=== PATIENT | female | born 1945 | race Caucasian/White ===

== ENCOUNTER 2023-05-16 05:50 | Day surgery (SDC) | payer OTHER ==
[~2023-05-16] VITALS: Ht 165.1 cm; Wt 59.9 kg
[2023-05-16] MEDS ORDERED: ceFAZolin SODIUM 2 GM in D5W 100 ML IV ONE (07:00)
[2023-05-16] MEDS ORDERED: ROCURONIUM BROMIDE 10 MG/ML (ZEMURON) ONE (07:23)
[2023-05-16] MEDS ORDERED: PROPOFOL 200MG/ 20ML VIAL (DIPRIVAN) IV ONE (07:23)
[2023-05-16] MEDS ORDERED: DEXAMETHASONE SOD PHOSPHATE 4 MG/ML VIAL ONE (07:23)
[2023-05-16] MEDS ORDERED: SUGAMMADEX SODIUM 200 MG/2 ML VIAL IV ONE (07:23)
[2023-05-16] MEDS ORDERED: LR 1,000 ML IV.SOLN IV ONE (07:23)
[2023-05-16] MEDS ORDERED: BUPIVACAINE /PF 0.5% 30 ML VIAL ONE (07:23)
[2023-05-16] MEDS ORDERED: FUROSEMIDE 40 MG/4 ML VIAL ONE (07:23)
[2023-05-16] MEDS ORDERED: ONDANSETRON HCL 4 MG/2 ML VIAL ONE (07:23)
[2023-05-16] MEDS ORDERED: KETOROLAC TROMETHAMINE 30 MG VIAL ONE (07:23)
[2023-05-16] MEDS ORDERED: DESFLURANE 15 MIN GAS INH ONE (07:23)
[2023-05-16] MEDS ORDERED: MIDAZOLAM HCL 5 MG/5 ML VIAL ONE (07:23)
[2023-05-16] MEDS ORDERED: fentaNYL CITRATE 250 MCG/5 ML AMP ONE (07:23)
[2023-05-16] MEDS ORDERED: LABETALOL 100 MG/ 20ML VIAL IVP PRN (09:00)
[2023-05-16] MEDS ORDERED: HYDROmorphone 1 MG/ML INJ. CARTRIDGE IVP PRN ×2 (09:00)
[2023-05-16] MEDS ORDERED: METOCLOPRAMIDE HCL 10 MG/2 ML VIAL IVP PRN (09:00)
[2023-05-16] MEDS ORDERED: hydrALAZINE HCL 20 MG/ML VIAL IVP PRN (09:00)
[2023-05-16] MEDS ORDERED: LR 1,000 ML IV SCH (09:00)
[2023-05-16] MEDS ORDERED: MEPERIDINE HCL/PF 25 MG/ML DISP.SYRIN IVP PRN (09:00)
[2023-05-16] MEDS ORDERED: ACETAMINOPHEN I.V. 1000 MG 100 ML IV ONE (09:32)
[2023-05-16] MEDS ORDERED: CIPR500T5 PO (10:14)
[2023-05-16] MEDS ORDERED: ONDANSETRON HCL 4 MG/2 ML VIAL IVP PRN (10:15)
[2023-05-16] MEDS ORDERED: HYDROcodone/ACETAMIN 5-325 MG TAB (NORCO/ VICODIN) PO PRN (10:15)
[2023-05-16] MEDS ORDERED: IBUP-1969 PO (10:16)
[2023-05-16] MEDS ORDERED: HYDR-3917 PO (10:17)
[2023-05-16] MEDS ORDERED: HYDROmorphone 2 MG/ML VIAL ONE (10:31)
[2023-05-16] MEDS ORDERED: OXYCODONE/ACETAMINOPHEN 5-325 TABLET ONE (12:34)
[2023-05-16] MEDS: SIMETHICONE 80 MG TAB.CHEW PO SCH ×3 (13:00→21:57)
[2023-05-16] MEDS ORDERED: HYDROmorphone 2 MG/ML VIAL IVP PRN (15:00)
[2023-05-16] MEDS ORDERED: HYDROmorphone 1 MG/ML INJ. CARTRIDGE IM PRN (15:00)
[2023-05-16] MEDS ORDERED: OXYCODONE/ACETAMINOPHEN 5-325 TABLET PO PRN ×2 (15:00)
[2023-05-16] MEDS ORDERED: BENA-6 PO (16:35)
[2023-05-16] MEDS ORDERED: EZET-75 PO (16:36)
[2023-05-16] MEDS ORDERED: METF-834 PO (16:36)
[2023-05-16] MEDS ORDERED: MONT-40 PO (16:37)
[2023-05-16] MEDS ORDERED: BACL10TA PO (16:37)
[2023-05-16] MEDS ORDERED: FLUT16SP16 NS (16:37)
[2023-05-16] MEDS ORDERED: MELO5CAP2 (16:40)
[2023-05-16 17:37] VITALS: BP_SYST 126; PULSE 60; RESP 16; TEMP 98
[2023-05-16 17:54] VITALS: O2SAT 96
[2023-05-16 19:00] VITALS: BP_SYST 110; PULSE 51; RESP 16; TEMP 98.6; O2SAT 94
[2023-05-16 20:00] VITALS: BP_SYST 110; PULSE 51; RESP 16; TEMP 98.6; O2SAT 94
[2023-05-17] VITALS: BP_SYST 105; PULSE 54; RESP 16; TEMP 98.2; O2SAT 96
[2023-05-17 08:00] VITALS: BP_SYST 135; PULSE 52; RESP 18; TEMP 96.9; O2SAT 98
[2023-05-17] MEDS: SIMETHICONE 80 MG TAB.CHEW PO SCH (08:56)
[2023-05-17 09:06] VITALS: BP_SYST 135; PULSE 52; RESP 18; TEMP 96.9; O2SAT 98
== END 2023-05-16 10:04 | disposition home or self-care (01) ==
LOC: SDS 05:50 → SMU 05:50 → SDS 10:04 → SMU 16:49 → SDS 05-17 10:04
PROVIDERS: ATTEND Specialist
DX: N87.9 Dysplasia of cervix uteri, unspecified (principal); B97.7 Papillomavirus as the cause of diseases classified elsewhere; N88.2 Stricture and stenosis of cervix uteri; R93.89 Abnormal findings on diagnostic imaging of other specified body structures; J43.1 Panlobular emphysema; I10 Essential (primary) hypertension; E11.9 Type 2 diabetes mellitus without complications; E78.5 Hyperlipidemia, unspecified; J44.9 Chronic obstructive pulmonary disease, unspecified; F17.210 Nicotine dependence, cigarettes, uncomplicated; Z88.5 Allergy status to narcotic agent; Z88.8 Allergy status to other drugs, medicaments and biological substances; Z79.899 Other long term (current) drug therapy
CPT/HCPCS: 87081; 58552; 64488; 82948; 88307; J3490 ×2; J1100; J1885; J2250; J2405; J2704; J3010; J1170; J7060; J7120; C1727; J0131; S2900; J1940